=== PATIENT | female | born 1980 | race Caucasian/White ===

== ENCOUNTER → 2019-10-31 08:21 | Outpatient (BNVA) | payer BC, SELFPAY | PROVIDERS: Family Provider Nurse Practitioner Family; PCP Nurse Practitioner Family; Visit Provider Internal Medicine | DX: E11.9 Type 2 diabetes mellitus without complications (principal); I10 Essential (primary) hypertension; E66.9 Obesity, unspecified; E28.2 Polycystic ovarian syndrome | CPT/HCPCS: 80053; 80061; 83036; 84443; 85025 ==

== ENCOUNTER → 2020-02-06 09:08 | Outpatient (BNVA) | payer BC, SELFPAY | PROVIDERS: Family Provider Nurse Practitioner Family; PCP Nurse Practitioner Family; Visit Provider Nurse Practitioner Family | DX: I10 Essential (primary) hypertension (principal); L68.0 Hirsutism; E28.2 Polycystic ovarian syndrome | CPT/HCPCS: 80053; 80061; 84443; 85025 ==

== ENCOUNTER → 2020-09-04 11:31 | Outpatient (BNVA) | payer BC, SELFPAY | PROVIDERS: Family Provider Nurse Practitioner Family; PCP Nurse Practitioner Family; Visit Provider Nurse Practitioner Family | DX: L68.0 Hirsutism (principal); I10 Essential (primary) hypertension | CPT/HCPCS: 80053; 80061; 84443; 85025 ==

== ENCOUNTER → 2021-03-25 09:07 | Outpatient (BNVA) | payer BC, SELFPAY | PROVIDERS: Family Provider Nurse Practitioner Family; PCP Nurse Practitioner Family; Visit Provider Nurse Practitioner Family | DX: I10 Essential (primary) hypertension (principal); L68.0 Hirsutism; T63.461A Toxic effect of venom of wasps, accidental (unintentional), initial encounter | CPT/HCPCS: 80053; 80061; 84443; 85025 ==

== ENCOUNTER 2021-06-15 12:34 | Outpatient (CLI) | payer OTHER, SELFPAY ==
--- NOTE | 2021-06-15 13:43 | MM_ITS ---
WS: [id number] SCREENING 3-D digital MAMMOGRAM WITH CAD HISTORY: SCREENING COMPARISON: None available. Bilateral C-view and tomosynthesis are reviewed. Computer aided detection analyzed. Breast composition: There are scattered areas of fibroglandular density. Persisting on the tomosynthe sis is a spiculated asymmetry in the superior lateral LEFT breast. This asymmetry is really only seen on the sagittal view. This asymmetry is in the anterior to mid breast. Further evaluation is necessa ry. Otherwise benign calcifications. MM/[place] [id number] IMPRESSION: BI-RADS: 0-Incomplete: Need additional imaging evaluation FOLLOW UP: Need Additional Imaging LEFT breast: Spot compression views (CC and MLO). True ML. Ultrasound to follow if abnormality persists.
== END 2021-06-15 12:35 | disposition home or self-care (01) ==
LOC: RADSHAW 12:35
PROVIDERS: Family Provider Nurse Practitioner Family; PCP Nurse Practitioner Family; Visit Provider Nurse Practitioner Family
DX: Z12.31 Encounter for screening mammogram for malignant neoplasm of breast (principal)
CPT/HCPCS: 77063; 77067

== ENCOUNTER 2021-06-17 13:36 | Outpatient (CLI) | payer OTHER, SELFPAY ==
--- NOTE | 2021-06-17 13:45 | MM_ITS ---
WS: [id number] ADDITIONAL VIEWS LEFT MAMMOGRAM, tomosynthesis. HISTORY: R92.8 - Other abnormal and inconclusive findings on diagnostic imaging... COMPARISON: 06/15/2021 Spot compression views with tomosynthesis. LEFT breast in CC, MLO projections and true ML submitted. Asymmetry in the superior LEFT breast resolves with additional imaging. No architectural distortion o r mass. MM/[place] [id number] IMPRESSION: BI-RADS: 2-Benign FOLLOW UP: 1 Year Follow-up
== END 2021-06-17 13:37 | disposition home or self-care (01) ==
LOC: RAD 13:37
PROVIDERS: Family Provider Nurse Practitioner Family; PCP Nurse Practitioner Family; Visit Provider Nurse Practitioner Family
DX: R92.8 Other abnormal and inconclusive findings on diagnostic imaging of breast (principal)
CPT/HCPCS: 77061

== ENCOUNTER → 2021-07-12 11:13 | Outpatient (BNVA) | payer OTHER, SELFPAY | PROVIDERS: Family Provider Nurse Practitioner Family; PCP Nurse Practitioner Family; Visit Provider Nurse Practitioner Family | DX: R21 Rash and other nonspecific skin eruption (principal) | CPT/HCPCS: 80053; 82306; 82607; 85025 ==

== ENCOUNTER → 2021-10-15 11:39 | Outpatient (BNVA) | payer OTHER, SELFPAY | PROVIDERS: Family Provider Nurse Practitioner Family; PCP Nurse Practitioner Family; Visit Provider Nurse Practitioner Family | DX: L68.0 Hirsutism (principal); I10 Essential (primary) hypertension; R73.9 Hyperglycemia, unspecified | CPT/HCPCS: 80053; 80061; 83036; 84443; 85025 ==